=== PATIENT | male | born 1940 | race Caucasian/White ===

== ENCOUNTER → 2016-09-14 | Outpatient (CLI) | payer OTHER ==
[2016-09-14 13:46] LABS: BASO % 0.8 %; BASO ABS # 0.06 K/uL (0-0.2); COMPLETE YES; EOS % 2.9 %; HEMATOCRIT 42.1 % (42-52); IG% 0.1 %; LYMPH % 13.2 %; LYMPH ABS # 0.96 K/uL (1.2-3.4); MEAN CELL VOLUME 88.8 fL (80-100); MEAN CORPUSCULAR HEMOGLOBIN 30.8 pg (25-34); MEAN CORPUSCULAR HGB CONC 34.7 g/dl (32-36); MEAN PLATELET VOLUME 9.8 fL (7.4-10.4); MONO % 9.2 %; NEUT % 73.8 %; PLATELET COUNT 190 K/uL (130-400); RED BLOOD COUNT 4.74 M/uL (4.7-6.1); WHITE BLOOD COUNT 7.25 K/uL (4.8-10.8)
[2016-09-14 14:35] LABS: ALT/SGPT 36 U/L (12-78); AST/SGOT 19 U/L (15-37); BLOOD UREA NITROGEN 16 mg/dl (7-18); BUN/CREATININE RATIO 19.3 (10-20); CALCIUM 8.6 mg/dl (8.5-10.1); CARBON DIOXIDE 30 mmol/L (21-32); CHLORIDE 106 mmol/L (98-107); CREATININE 0.82 mg/dl (0.60-1.40); GLUCOSE 100 mg/dl (70-99); HDL CHOLESTEROL 44 mg/dl; POTASSIUM 3.9 mmol/L (3.5-5.1); SODIUM 144 mmol/L (136-145)
[2016-09-14 14:40] LABS: ALKALINE PHOSPHATASE 70 U/L (45-117); CHOLESTEROL 146 mg/dl (0-200); CHOLESTEROL/HDL RATIO 3.3; LDL CHOLESTEROL CALCULATED 52 mg/dl; TRIGLYCERIDES 251 mg/dl (0-150); VERY LOW DENSITY LIPOPROT CALC 50 mg/dl
== END | disposition home or self-care (01) ==
LOC: C.LABSPEC 13:25
PROVIDERS: ATTEND Family Medicine
DX: I10 Essential (primary) hypertension (principal); I25.10 Atherosclerotic heart disease of native coronary artery without angina pectoris; G40.909 Epilepsy, unspecified, not intractable, without status epilepticus

== ENCOUNTER 2017-09-22 17:16 | Emergency (ER) | payer OTHER ==
[~2017-09-22] VITALS: Ht 170.2 cm; Wt 110.0 kg
[2017-09-22] MEDS ORDERED: SODIUM CHLORIDE 0.9% 1000ML 1,000 ML IV STA (17:20)
[2017-09-22 17:26] VITALS: O2SAT 92
[2017-09-22 17:27] VITALS: TEMP 36.6; Ht 170.2 cm; Wt 110.0 kg
[2017-09-22] MEDS ORDERED: OPTIRAY 320 IV PRN (18:15)
--- NOTE | 2017-09-22 18:17 | EMERGENCY ROOM VISIT NOTE ---
History Report prepared by Maryjane: Ivette Carter Under the Supervision of: Dr. Akin Orellana M.D. First contact with patient: 17:20 Chief Complaint: RECTAL BLEEDING Stated Complaint: ABD PAIN Nursing Triage Summary: arrived from [facility] where he is being treated for seizures, now having two episodes rectal bleeding today, one at 2:45 and one at 4pm c/o abd pain but unable to quantitate a number on pain scale History of Present Illness The patient is a 77 year old male who presents to the Emergency Room by EMS with complaints of episodes of rectal bleeding beginning this afternoon. The patient was sent in from [facility] for two bloody bowel movements occurring since 2 pm this afternoon. The patient is at [facility] for seizures. The patient reports he had abdominal pain this afternoon. Presently, the patient denies any abdominal pain. The patient denies any history of GI bleeds. Source of History: patient Onset: this afternoon Position: other (rectal) Quality: other (bleeding) Timing: other (episodes) Associated Symptoms: No abdominal pain Review of Systems See HPI for pertinent positives & negatives. A total of 10 systems reviewed and were otherwise negative. Past Medical & Surgical Medical Problems: (1) Seizure Family History Patient reports no known family medical history. Social History Smoking Status: Unknown if Ever Smoked Marital Status: single Housing Status: lives alone Occupation Status: retired Current/Historical Medications Scheduled Apixaban (Eliquis), 5 MG PO Q12 Atorvastatin (Lipitor), 20 MG PO HS Ciprofloxacin Hcl (Cipro), 500 MG PO BID Ferrous Sulfate (Ferrous Sulfate), 325 MG PO DAILY Furosemide (Lasix), 20 MG PO DAILY Lacosamide (Vimpat), 100 MG PO Q12 Levetiracetam (Keppra), 500 MG PO Q12 Levothyroxine Sodium (Levothyroxine Sodium), 50 MCG PO DAILY Lisinopril (Zestril), 10 MG PO DAILY Metronidazole (Flagyl), 500 MG PO TID Pantoprazole (Protonix), 40 MG PO UD Potassium Chloride (Potassium Chloride Er), 10 MEQ PO BIDM Primidone (Primidone), 250 MG PO Q12 Sennosides-Docusate Sodium (Docusate Sodium/Senna), 1 TAB PO DAILY Scheduled PRN Acetaminophen (Tylenol), 500 MG PO Q4H PRN for Pain Bisacodyl (Bisacodyl), 1 SUPP KS DAILY PRN for Constipation Docusate Sodium (Docusate Sodium), 100 MG PO UD PRN for Constipation Magnesium Hydroxide (Milk of Magnesia), 30 ML PO DAILY PRN for Constipation Nitroglycerin (Nitrostat), 0.4 MG UT UD PRN for Chest Pain Polyethylene Glycol 3350 (Bulk (Polyethylene Glycol 3350), 17 GM PO DAILY PRN for Constipation Sodium Phosphate/Biphosphate (Fleet Enema), 1 EA KS DAILY PRN for Constipation Allergies Coded Allergies: No Known Allergies (Verified , 09/26/04) Physical Exam Vital Signs Date Time Temp Pulse Resp B/P (MAP) Pulse Ox O2 Delivery O2 Flow Rate FiO2 09/22/17 23:25 63 20 111/71 98 09/22/17 21:11 51 108/69 95 Room Air 09/22/17 19:35 53 17 09/22/17 19:30 87 16 96 Room Air 09/22/17 19:00 83 17 09/22/17 17:50 90 09/22/17 17:27 36.6 90 18 120/82 92 Room Air 09/22/17 17:26 92 Room Air Physical Exam GENERAL: Awake, alert, well-appearing, in no acute distress HENT: Normocephalic, atraumatic. Oropharynx unremarkable. EYES: Normal conjunctiva. Sclera non-icteric. NECK: Supple. No nuchal rigidity. FROM. No JVD. RESPIRATORY: Clear to auscultation. CARDIAC: Regular rate, normal rhythm. Extremities warm and well perfused. Pulses equal. ABDOMEN: Soft, non-distended. No tenderness to palpation. No rebound or guarding. No masses. RECTAL: Deferred. MUSCULOSKELETAL: Chest examination reveals no tenderness. The back is symmetrical on inspection without obvious abnormality. There is no CVA tenderness to palpation. No joint edema. LOWER EXTREMITIES: Calves are equal size bilaterally and non-tender. No edema. No discoloration. RECTAL: Bright red blood per rectum. NEURO: Normal sensorium. No sensory or motor deficits noted. SKIN: No rash or jaundice noted. 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 Lung bases: Minimal basilar opacities, likely atelectasis. Multichamber enlargement of the heart. Coronary artery and aortic valve calcification. Trace left pleural effusion. Liver: Mildly macronodular contour of the liver. No focal lesion. Patent hepatic vasculature. Biliary: Mild biliary ductal prominence likely a reservoir effect in the post cholecystectomy state. Gallbladder surgically absent. Pancreas: Moderate parenchymal atrophy. Spleen: Normal. Adrenal glands: Normal. Kidneys and ureters: Mild renal cortical thinning may be present, which could suggest chronic renal disease. No other parenchymal abnormality. No nephrolithiasis. No hydronephrosis. Minimal nonspecific perinephric fat stranding. Ureters normal. Bladder: Several bladder diverticula noted. Pelvic organs: Prostate enlargement likely secondary to benign prostatic hyperplasia. Bowel: Diverticulosis of the proximal to mid sigmoid colon as well as the distal descending colon. No pericolonic fat stranding at the sigmoid colon, however, nonspecific pericolonic fat stranding along the ascending colon with prominence of the vasa recta. No bowel obstruction. The appendix is absent. Peritoneal cavity: No free fluid or intraperitoneal gas. Trace peritoneal thickening along the right paracolic gutter. Lymph nodes: No enlarged lymph nodes in the abdomen or pelvis. Vasculature: Atherosclerosis of the normal caliber abdominal aorta. IVC patent. Abdominal wall: Focal infiltration along the lateral left thigh. Minimal nonspecific body wall edema also noted along the lateral abdominal hu. Musculoskeletal: Severe degenerative changes of the right hip joint. Degenerative changes of the spine also noted. Old left rib fracture evident. IMPRESSION: 1. Trace pericolonic fat stranding along the ascending colon with prominence of the vasa recta. This could imply chronic inflammation. A mild superimposed acute component is difficult to exclude. This could suggest a history of infectious colitis or inflammatory bowel disease. 2. Diverticulosis. 3. Trace left pleural effusion with bibasilar atelectasis. 4. Cardiomegaly. 5. Prostatomegaly. 6. Bladder diverticula. Electronically signed by: Anupam Ruelas M.D. Laboratory Results 09/22/17 18:15 Red Blood Count 4.92, Mean Corpuscular Volume 94.1, Mean Corpuscular Hemoglobin 31.9, Mean Corpuscular Hemoglobin Concent 33.9, Mean Platelet Volume 9.8, Neutrophils (%) (Auto) 78.9, Lymphocytes (%) (Auto) 10.1, Monocytes (%) (Auto) 8.2, Eosinophils (%) (Auto) 2.3, Basophils (%) (Auto) 0.4, Neutrophils # (Auto) 7.84, Lymphocytes # (Auto) 1.00, Monocytes # (Auto) 0.81, Eosinophils # (Auto) 0.23, Basophils # (Auto) 0.04 09/22/17 18:15 Test 09/22/17 18:15 09/22/17 19:03 White Blood Count 9.93 K/uL (4.8-10.8) Red Blood Count 4.92 M/uL (4.7-6.1) Hemoglobin 15.7 g/dL (14.0-18.0) Hematocrit 46.3 % (42-52) Mean Corpuscular Volume 94.1 fL (80-100) Mean Corpuscular Hemoglobin 31.9 pg (25-34) Mean Corpuscular Hemoglobin Concent 33.9 g/dl (32-36) Platelet Count 192 K/uL (130-400) Mean Platelet Volume 9.8 fL (7.4-10.4) Neutrophils (%) (Auto) 78.9 % Lymphocytes (%) (Auto) 10.1 % Monocytes (%) (Auto) 8.2 % Eosinophils (%) (Auto) 2.3 % Basophils (%) (Auto) 0.4 % Neutrophils # (Auto) 7.84 K/uL (1.4-6.5) Lymphocytes # (Auto) 1.00 K/uL (1.2-3.4) Monocytes # (Auto) 0.81 K/uL (0.11-0.59) Eosinophils # (Auto) 0.23 K/uL (0-0.5) Basophils # (Auto) 0.04 K/uL (0-0.2) RDW Standard Deviation 45.6 fL (36.4-46.3) RDW Coefficient of Variation 13.3 % (11.5-14.5) Immature Granulocyte % (Auto) 0.1 % Immature Granulocyte # (Auto) 0.01 K/uL (0.00-0.02) Prothrombin Time 10.2 SECONDS (9.0-12.0) Prothromb Time International Ratio 1.0 (0.9-1.1) Activated Partial Thromboplast Time 27.7 SECONDS (21.0-31.0) Partial Thromboplastin Ratio 1.1 Est Creatinine Clear Calc Drug Dose 77.9 ml/min Estimated GFR () 88.1 Estimated GFR (Non- 76.1 BUN/Creatinine Ratio 36.2 (10-20) Calcium Level 8.5 mg/dl (8.5-10.1) Total Bilirubin 0.4 mg/dl (0.2-1) Direct Bilirubin 0.1 mg/dl (0-0.2) Aspartate Amino Transf (AST/SGOT) 65 U/L (15-37) Alanine Aminotransferase (ALT/SGPT) 107 U/L (12-78) Alkaline Phosphatase 72 U/L (45-117) Total Protein 7.1 gm/dl (6.4-8.2) Albumin 3.0 gm/dl (3.4-5.0) Lipase 310 U/L (73-393) Bedside Hemoglobin 14.3 g/dl (14.0-18.0) Bedside Hematocrit 42 % (42-52) Bedside Sodium 143 mEq/L (135-144) Bedside Potassium 3.8 mEq/L (3.3-5.0) Bedside Chloride 99 mEq/L (101-112) Bedside Total CO2 34 mEq/l (24-31) Anion Gap 14.0 mmol/L (16-25) Bedside Blood Urea Nitrogen 38 mg/dl (7-18) Bedside Creatinine 1.0 mg/dl (0.6-1.3) Bedside Glucose (other) 117 mg/dl (70-99) Bedside Ionized Calcium (Juan Antonio) 1.08 mmol/l (1.12-1.32) Labs reviewed by ED physician. Medications Administered Medications (Trade) Dose Ordered Sig/Jessica Route Start Time Stop Time Status Last Admin Dose Admin Sodium Chloride 1,000 ml @ 999 mls/hr Q1H1M STAT IV 09/22/17 17:20 09/22/17 18:20 DC 09/22/17 18:11 999 MLS/HR Ciprofloxacin (Cipro Tab) 500 mg NOW STAT PO 09/22/17 22:37 09/22/17 22:38 DC 09/22/17 22:37 500 MG Metronidazole (Flagyl Tab) 500 mg NOW STAT PO 09/22/17 22:37 09/22/17 22:38 DC 09/22/17 22:37 500 MG ECG Per My Interpretation Indication: weakness Rate (beats per minute): 89 Rhythm: normal sinus Findings: other (no ST elevation or depression, normal axis ) ED Course 1720: Past medical records reviewed. The patient was evaluated in room B4B. A complete history and physical examination was performed. Ordered Sodium Chloride 1000 ml @ 999 mls/hr. 2235: I updated the patient on his test results. The patient would like to go back to [facility]. I strongly recommended he come into the hospital for further evaluation and he refused. 2237: Ordered Flagyl Tab 500 mg PO, Cipro Tab 500 mg PO. 2301: Upon reexamination the patient is resting comfortably. I discussed results and treatment plan with the patient. He verbalizes agreement and understanding. The patient is ready for discharge. Medical Decision Differential diagnosis: Etiologies such as diverticulosis, AVM, coagulopathy, colitis, inflammatory bowel disease, malignancy, Janna-Cates tear, esophagitis, peptic ulcer disease , variceal bleed, gastritis, epistaxis, fissure, hemorrhoids, as well as others were entertained. This is a 77-year-old male who presents emergency department 2 large episodes of bright red blood per rectum. Despite the episodes the patient has no complaints. Serial abdominal examinations were performed and the patient in the emergency department at no time the patient exhibited a surgical abdomen. I will note that the patient's hemoglobin is stable at 15. The patient was observed for an extended period time in the emergency department he was sent for CAT scan of the abdomen pelvis. The patient's CAT scan was concerning for a colitis. Based on the complaint as well as the colitis I will place the patient on Cipro and Flagyl. I strongly recommended to the patient that he be admitted to the hospital however he wishes to return back to [facility]. I suppose that this is reasonable as he has had no further episodes of rectal bleeding. However I strongly recommended that the patient return if he develops any more rectal bleeding and that he see gastroenterology. Patient was in agreement with treatment plan. Medication Reconcilliation Current Medication List: was personally reviewed by me Blood Pressure Screening Patient's blood pressure: Normal blood pressure Impression Primary Impression: Rectal bleeding Scribe Attestation The scribe's documentation has been prepared under my direction and personally reviewed by me in its entirety. I confirm that the note above accurately reflects all work, treatment, procedures, and medical decision making performed by me. Departure Information Dispostion Home / Self-Care Prescriptions Metronidazole (Flagyl) 500 Mg Tab 500 MG PO TID for 10 Days, #30 TAB Prov: Akin Orellana MD 09/22/17 Ciprofloxacin Hcl (CIPRO) 500 Mg Tab 500 MG PO BID for 10 Days, #20 TAB Prov: Akin Orellana MD 09/22/17 Referrals Steve Julian M.D. ([place]) (PCP) Forms HOME CARE DOCUMENTATION FORM, IMPORTANT VISIT INFORMATION, WORK / SCHOOL INSTRUCTIONS Patient Instructions ED Hematochezia Stable, My [facility] Additional Instructions Follow up with DR Nicole's office RETURN IF THERE IS FURTHER RECTAL BLEEDING, DIZZINESS OR FEEL Like you are going to pass out Culture results are usually available in approx 48 hours You have been examined and treated today on an emergency basis only. This is not a substitute for, or an effort to provide, complete comprehensive medical care. It is impossible to recognize and treat all injuries or illnesses in a single emergency department visit. It is therefore important that you follow up closely with Dr Julian. Call as soon as possible for an appointment. Thank you for your time and consideration. I look forward to speaking with you again soon. Please don't hesitate to call us if you have any questions.
[2017-09-22 18:23] LABS: BASO % 0.4 %; BASO ABS # 0.04 K/uL (0-0.2); EOS % 2.3 %; EOS ABS # 0.23 K/uL (0-0.5); HEMATOCRIT 46.3 % (42-52); HEMOGLOBIN 15.7 g/dL (14.0-18.0); IG# 0.01 K/uL (0.00-0.02); LYMPH % 10.1 %; MEAN CELL VOLUME 94.1 fL (80-100); MEAN CORPUSCULAR HEMOGLOBIN 31.9 pg (25-34); MEAN CORPUSCULAR HGB CONC 33.9 g/dl (32-36); MEAN PLATELET VOLUME 9.8 fL (7.4-10.4); MONO % 8.2 %; MONO ABS # 0.81 K/uL (0.11-0.59); NEUT % 78.9 %; NEUT ABS # 7.84 K/uL (1.4-6.5); PLATELET COUNT 192 K/uL (130-400); RED CELL DISTRIBUTION WIDTH CV 13.3 % (11.5-14.5); RED CELL DISTRIBUTION WIDTH SD 45.6 fL (36.4-46.3); WHITE BLOOD COUNT 9.93 K/uL (4.8-10.8)
[2017-09-22 18:54] LABS: PTT PATIENT 27.7 SECONDS (21.0-31.0)
[2017-09-22] MEDS ORDERED: LISI-461 PO (19:09)
[2017-09-22] MEDS ORDERED: FURO-85 PO (19:09)
[2017-09-22] MEDS ORDERED: APIX1TAB3 PO (19:09)
[2017-09-22] MEDS ORDERED: LEVO50TA6 PO (19:09)
[2017-09-22] MEDS ORDERED: LEVE500T13 PO (19:09)
[2017-09-22] MEDS ORDERED: LACO100T PO (19:09)
[2017-09-22] MEDS ORDERED: SENN8.6T36 PO (19:09)
[2017-09-22] MEDS ORDERED: ATOR-22 PO (19:09)
[2017-09-22] MEDS ORDERED: FERR1TAB62 PO (19:09)
[2017-09-22] MEDS ORDERED: PANT40TA PO (19:14)
[2017-09-22] MEDS ORDERED: POTA-74 PO (19:14)
[2017-09-22] MEDS ORDERED: PRIM250T8 PO (19:14)
[2017-09-22 19:16] LABS: ISTAT IONIZED CALCIUM 1.08 mmol/l (1.12-1.32); ISTAT POTASSIUM 3.8 mEq/L (3.3-5.0)
[2017-09-22] MEDS ORDERED: BISA10SU5 PR (19:22)
[2017-09-22] MEDS ORDERED: DOCU100C31 PO (19:22)
[2017-09-22] MEDS ORDERED: POLY1POW2 PO (19:22)
[2017-09-22] MEDS ORDERED: NTRGSL/4 UT (19:22)
[2017-09-22] MEDS ORDERED: SODIENE PR (19:22)
[2017-09-22] MEDS ORDERED: ACET-1256 PO (19:22)
[2017-09-22] MEDS ORDERED: MOMLX PO (19:22)
[2017-09-22 19:29] LABS: CALCIUM 8.5 mg/dl (8.5-10.1); CREATININE 0.97 mg/dl (0.60-1.40); TOTAL PROTEIN 7.1 gm/dl (6.4-8.2)
[2017-09-22 19:30] LABS: POTASSIUM 3.7 mmol/L (3.5-5.1)
--- NOTE | 2017-09-22 21:28 | DIAGNOSTIC IMAGING REPORT ---
ABD/PELVIS IV CONTRAST ONLY CLINICAL HISTORY: 77 years-old Male presenting with Pt c/o Abd pain . TECHNIQUE: Multidetector CT of the abdomen and pelvis was performed after the administration of intravenous contrast. IV contrast: 94 mL of Optiray 320. A dose lowering technique was used consistent with the principles of ALARA (as low as reasonably achievable). COMPARISON: None. CT DOSE (mGy.cm): The estimated cumulative dose is 1527.61 mGy.cm. FINDINGS: Material Hauler topogram: Cholecystectomy clips noted. Lung bases: Minimal basilar opacities, likely atelectasis. Multichamber enlargement of the heart. Coronary artery and aortic valve calcification. Trace left pleural effusion. Liver: Mildly macronodular contour of the liver. No focal lesion. Patent hepatic vasculature. Biliary: Mild biliary ductal prominence likely a reservoir effect in the post cholecystectomy state. Gallbladder surgically absent. Pancreas: Moderate parenchymal atrophy. Spleen: Normal. Adrenal glands: Normal. Kidneys and ureters: Mild renal cortical thinning may be present, which could suggest chronic renal disease. No other parenchymal abnormality. No nephrolithiasis. No hydronephrosis. Minimal nonspecific perinephric fat stranding. Ureters normal. Bladder: Several bladder diverticula noted. Pelvic organs: Prostate enlargement likely secondary to benign prostatic hyperplasia. Bowel: Diverticulosis of the proximal to mid sigmoid colon as well as the distal descending colon. No pericolonic fat stranding at the sigmoid colon, however, nonspecific pericolonic fat stranding along the ascending colon with prominence of the vasa recta. No bowel obstruction. The appendix is absent. Peritoneal cavity: No free fluid or intraperitoneal gas. Trace peritoneal thickening along the right paracolic gutter. Lymph nodes: No enlarged lymph nodes in the abdomen or pelvis. Vasculature: Atherosclerosis of the normal caliber abdominal aorta. IVC patent. Abdominal wall: Focal infiltration along the lateral left thigh. Minimal nonspecific body wall edema also noted along the lateral abdominal hu. Musculoskeletal: Severe degenerative changes of the right hip joint. Degenerative changes of the spine also noted. Old left rib fracture evident. IMPRESSION: 1. Trace pericolonic fat stranding along the ascending colon with prominence of the vasa recta. This could imply chronic inflammation. A mild superimposed acute component is difficult to exclude. This could suggest a history of infectious colitis or inflammatory bowel disease. 2. Diverticulosis. 3. Trace left pleural effusion with bibasilar atelectasis. 4. Cardiomegaly. 5. Prostatomegaly. 6. Bladder diverticula. Electronically signed by: Anupam Ruelas M.D. 09/22/2017 9:27 PM Dictated Date/Time: 09/22/2017 9:18 PM
[2017-09-22] MEDS ORDERED: CIPROFLOXACIN 500 MG TAB PO STA (22:37)
[2017-09-22] MEDS ORDERED: METRONIDAZOLE 250 MG TAB PO STA (22:37)
[2017-09-22] MEDS ORDERED: CIPR-255 PO (22:41)
[2017-09-22] MEDS ORDERED: METR-163 PO (22:41)
[2017-09-22 23:25] VITALS: BP 111/71; PULSE 63; O2SAT 98
== END 2017-09-22 23:26 | disposition home or self-care (01) ==
LOC: EDBD 17:16 → C.EDB 17:20
DX: K62.5 Hemorrhage of anus and rectum (principal); R56.9 Unspecified convulsions; K57.90 Diverticulosis of intestine, part unspecified, without perforation or abscess without bleeding; I51.7 Cardiomegaly; N41.3 Prostatocystitis